=== PATIENT | male | born 1960 | race American Indian/Alaskan Native ===

== ENCOUNTER 2016-07-12 11:25 | Outpatient (CLI) | payer OTHER ==
--- NOTE | 2016-07-12 13:31 | XRay Report ---
Cervical spine 2 views: History: Stenosis of cervical myelopathy. Findings: Normal height of vertebral bodies. Decrease in height of C4-C5 and C5-C6. Sclerotic articular surfaces with osteophyte suggestive severe cervical spondylosis. Postop changes posterior elements of C3,C4 and C5. Normal prevertebral soft tissue. Impression: Cervical spondylosis.
== END 2016-07-12 11:26 | disposition home or self-care (01) ==
LOC: XRAY 11:25
PROVIDERS: ATTEND Neurological Surgery
DX: M47.12 Other spondylosis with myelopathy, cervical region (principal)
CPT/HCPCS: 72040

== ENCOUNTER 2016-09-21 17:46 | Emergency (ER) | payer OTHER ==
[2016-09-21 18:55] VITALS: BP 135/73
--- NOTE | 2016-09-21 20:33 | Emergency Department Report ---
ED General Adult HPI - General Chief complaint: Urogenital-Male Stated complaint: CATH NO WORKING Time Seen by Provider: 09/21/16 20:27 Source: patient, RN notes reviewed Mode of arrival: Ambulatory Limitations: No Limitations - History of Present Illness Initial comments: PT states he has had a daniels in place since 06-07-16. PT states that he had neck surgery and before that time, he was able to treat his BPH with medication. PT states his catheter was placed last week in the urologist office. PT states yesterday he voided around the catheter. PT states that he also noticed blood in his urine yesterday. PT c/o urinary retention today since 1400, however, pt states he has yellow urine in his leg bag now. PT states that he is still having 10/10 pelvic pain. MD Complaint: uti -: Gradual, days(s) Location: pelvis Severity scale (0 -10): 10 Quality: constant Consistency: constant Improves with: none Worsens with: none Associated Symptoms: denies: fever/chills, nausea/vomiting Treatments Prior to Arrival: none - Related Data Home Medications Medication Instructions Recorded Confirmed Last Taken Mv,Ca,Min/Iron Fum/FA/Lyco/Lut 1 each PO QDAY 06/02/16 06/16/16 06/05/16 [Complete Multi Tablet] Previous Rx's Medication Instructions Recorded Last Taken Type Cyclobenzaprine [Flexeril 10 MG 10 mg PO Q8H PRN #60 tablet 06/17/16 Unknown Rx TAB] Docusate Sodium [Colace CAP] 100 mg PO BID #60 capsule 06/17/16 Unknown Rx HYDROcodone/APAP 10-325 [Lyons 2 each PO Q4H PRN #60 tablet 06/17/16 Unknown Rx 10-325 mg TAB] Polyethylene Glycol 3350 [Miralax 17 gm PO QDAY powd.pack 06/17/16 Unknown Rx 3350] Sennosides Tab [Senokot] 8.6 mg PO QHS #30 tablet 06/17/16 Unknown Rx Tamsulosin [Flomax] 0.4 mg PO QDAY #30 capsule 06/17/16 Unknown Rx Zolpidem [Ambien] 5 mg PO QHS PRN #30 tablet 06/17/16 Unknown Rx Levofloxacin [Levaquin] 750 mg PO QDAY #5 tablet 09/21/16 Unknown Rx Phenazopyridine [Pyridium] 200 mg PO TID #6 tab 09/21/16 Unknown Rx Allergies Allergy/AdvReac Type Severity Reaction Status Date / Time No Known Allergies Allergy Verified 09/21/16 18:48 ED Review of Systems ROS: Stated complaint: CATH NO WORKING Other details as noted in HPI Comment: All other systems reviewed and negative Constitutional: denies: chills, fever Gastrointestinal: abdominal pain. denies: nausea, vomiting Genitourinary: hematuria, other (daniels not draining ) Musculoskeletal: other (neck pain ). denies: back pain ED Past Medical Hx - Past Medical History Hx Hypertension: Yes (10YRS) Hx Congestive Heart Failure: No Hx Renal Disease: No (BPH) Hx Sickle Cell Disease: No Hx Asthma: No Additional medical history: BPH - Surgical History Hx Pacemaker: No Additional Surgical History: NECK SURGERY - Social History Smoking Status: Former Smoker Substance Use Type: Alcohol, Prescribed - Medications Home Medications: Home Medications Medication Instructions Recorded Confirmed Last Taken Type Mv,Ca,Min/Iron Fum/FA/Lyco/Lut 1 each PO QDAY 06/02/16 06/16/16 06/05/16 History [Complete Multi Tablet] Cyclobenzaprine [Flexeril 10 MG 10 mg PO Q8H PRN #60 tablet 06/17/16 Unknown Rx TAB] Docusate Sodium [Colace CAP] 100 mg PO BID #60 capsule 06/17/16 Unknown Rx HYDROcodone/APAP 10-325 [Lyons 2 each PO Q4H PRN #60 tablet 06/17/16 Unknown Rx 10-325 mg TAB] Polyethylene Glycol 3350 [Miralax 17 gm PO QDAY powd.pack 06/17/16 Unknown Rx 3350] Sennosides Tab [Senokot] 8.6 mg PO QHS #30 tablet 06/17/16 Unknown Rx Tamsulosin [Flomax] 0.4 mg PO QDAY #30 capsule 06/17/16 Unknown Rx Zolpidem [Ambien] 5 mg PO QHS PRN #30 tablet 06/17/16 Unknown Rx Levofloxacin [Levaquin] 750 mg PO QDAY #5 tablet 09/21/16 Unknown Rx Phenazopyridine [Pyridium] 200 mg PO TID #6 tab 09/21/16 Unknown Rx ED Physical Exam - General Limitations: No Limitations General appearance: alert, other (appears uncomfortable ) - Head Head exam: Present: atraumatic, normocephalic, normal inspection - Eye Eye exam: Present: normal appearance, PERRL, EOMI. Absent: conjunctival injection - ENT ENT exam: Present: normal exam, mucous membranes moist, normal external ear exam - Neck Neck exam: Absent: normal inspection (vertical scar to post neck ) - Respiratory Respiratory exam: Absent: respiratory distress - Cardiovascular Cardiovascular Exam: Present: tachycardia. Absent: regular rate - GI/Abdominal GI/Abdominal exam: Present: soft. Absent: tenderness, guarding, rebound - Extremities Exam Extremities exam: Present: normal inspection, full ROM - Back Exam Back exam: Present: normal inspection, full ROM. Absent: tenderness, CVA tenderness (R), CVA tenderness (L), muscle spasm, paraspinal tenderness, vertebral tenderness - Neurological Exam Neurological exam: Present: alert, oriented X3 - Psychiatric Psychiatric exam: Present: normal affect, normal mood - Skin Skin exam: Present: warm, dry, intact, normal color ED Course Vital Signs 09/21/16 09/21/16 18:51 22:34 Temperature 98.2 F Pulse Rate 117 H 94 H Respiratory 18 Rate Blood Pressure 135/73 O2 Sat by Pulse 100 Oximetry hr improved when pain controlled - Reevaluation(s) Reevaluation #1: 09/21/16 20:41 PT aware of plan of care. Reevaluation #2: 09/21/16 22:12 PT appears to be comfortable. PT states decrease in pain. PT aware of UA result and plan of care. PT has no questions at this time. - Pulse Oximetry Interpretation Digit-Finger Initial Pulse Oximetry Readin Actions Taken: none ED Medical Decision Making - Differential Diagnosis clot in cath, uti, Critical Care Time: No Critical care attestation.: If time is entered above; I have spent that time in minutes in the direct care of this critically ill patient, excluding procedure time. ED Disposition Clinical Impression: UTI (urinary tract infection) due to urinary indwelling catheter Qualifiers: Indwelling urinary catheter type: indwelling urethral catheter Encounter type: initial encounter Qualified Code(s): T83.511A - Infection and inflammatory reaction due to indwelling urethral catheter, initial encounter Disposition: TO HOME OR SELFCARE Is pt being admited?: No Does the pt Need Aspirin: No Condition: Stable Instructions: Urinary Tract Infection in Men (ED), Daniels Catheter Insertion (ED ), Daniels Catheter Placement and Care (ED) Additional Instructions: Call your Urologist tomorrow to establish follow up care. A urine culture is in progress - have your pcp or urologist follow up with the culture results to ensure that you are taking the proper antibiotics If you develop back pain, fevers, nausea or vomiting, return to the ED Prescriptions: Levofloxacin [Levaquin] 750 mg PO QDAY #5 tablet Phenazopyridine [Pyridium] 200 mg PO TID #6 tab Referrals: OLIVE GILLIS MD [Primary Care Provider] - 3-5 Days OSMIN CONNELLY MD [Staff Physician] - 3-5 Days Forms: Work/School Release Form(ED) Time of Disposition: 22:21
[2016-09-21] MEDS ORDERED: NORCO 5/325 PO ONE (20:39)
[2016-09-21 22:07] LABS: Bacteria,Urine 2+ /HPF (Negative); Bilirubin,Urine NEG (Negative); Blood,Urine MOD (Negative); Ketones,Urine NEG (Negative); Leukocyte Esterase,Urine LG (Negative); Mucus,Urine 2+ /HPF; Nitrite,Urine POS (Negative); Urobilinogen,Urine < 2.0 mg/dL (<2.0)
[2016-09-21 22:08] LABS: WBC,Urine > 182.0 /HPF (0.0-6.0)
[2016-09-21] MEDS ORDERED: XYLOCAINE 1% MPF 5 mL INFILTRATI ONE (22:09)
[2016-09-21] MEDS ORDERED: ROCEPHIN IM ONE (22:09)
== END 2016-09-21 22:40 | disposition home or self-care (01) ==
LOC: ED 17:46
DX: T83.511A Infection and inflammatory reaction due to indwelling urethral catheter, initial encounter (principal); I10 Essential (primary) hypertension; N40.0 Benign prostatic hyperplasia without lower urinary tract symptoms
CPT/HCPCS: 51702; 81001; 87086; 96372; 99283; J0696

== ENCOUNTER 2018-10-26 09:51 | Outpatient (CLI) | payer OTHER | END 2018-10-26 09:52 | disposition home or self-care (01) | LOC: CARD 09:51 | PROVIDERS: ATTEND Orthopaedic Surgery | DX: Z01.810 Encounter for preprocedural cardiovascular examination (principal); R94.31 Abnormal electrocardiogram [ECG] [EKG]; I10 Essential (primary) hypertension | CPT/HCPCS: 93005; 93010 ==

== ENCOUNTER 2020-08-26 10:07 | Outpatient (CLI) | payer MEDICARE, OTHER ==
[2020-08-26 10:37] LABS: Basophils % (Auto) 0.9 % (0.0-1.8); Eosinophils % (Auto) 1.3 % (0.0-4.3); Hematocrit 39.2 % (35.5-45.6); Hemoglobin 13.1 gm/dl (11.8-15.2); Lymphocytes # (Auto) 1.3 K/mm3 (1.2-5.4); Lymphocytes % (Auto) 36.6 % (13.4-35.0); Mean Corpuscular HGB Conc 33 % (32-34); Mean Corpuscular Volume 94 fl (84-94); Monocytes # (Auto) 0.5 K/mm3 (0.0-0.8); Monocytes % (Auto) 13.4 % (0.0-7.3); Platelet Count 271 K/mm3 (140-440); Red Blood Count 4.17 M/mm3 (3.65-5.03); Red Cell Distribution Width 13.9 % (13.2-15.2)
[2020-08-26 10:48] LABS: Alanine Aminotransferase 30 units/L (7-56); Albumin 4.5 g/dL (3.9-5); BUN/Creatinine Ratio 15; Blood Urea Nitrogen 19 mg/dL (9-20); Calcium 9.2 mg/dL (8.4-10.2); Hemolysis Index 6
== END 2020-08-26 10:08 | disposition home or self-care (01) ==
LOC: LAB 10:07
PROVIDERS: ATTEND Specialist
DX: G45.9 Transient cerebral ischemic attack, unspecified (principal)
CPT/HCPCS: 36415; 80053; 85025